=== PATIENT | female | born 1975 | race Two or more races ===

== ENCOUNTER 2016-09-24 16:42 | Emergency (ER) | payer MEDICAID ==
[2016-09-24 17:27] LABS: URINE BILIRUBIN NEGATIVE (NEGATIVE); URINE BLOOD NEGATIVE (NEGATIVE); URINE GLUCOSE (UA) NEGATIVE (NEGATIVE); URINE LEUKOCYTE ESTERASE TRACE (NEGATIVE); URINE NITRITE NEGATIVE (NEGATIVE); URINE PROTEIN NEGATIVE (NEGATIVE); URINE UROBILINOGEN NORMAL (0-1 mg/dl)
[2016-09-24 17:28] LABS: URINE APPEARANCE CLEAR; URINE COLOR LIGHT YELLOW
[2016-09-24 17:29] LABS: HCG,QUALITATIVE URINE NEGATIVE
[2016-09-24 17:36] LABS: URINE BACTERIA 2+; URINE RBC 0 /hpf; URINE WBC 0-1 /hpf
[2016-09-24] MEDS ORDERED: LORAZEPAM 1 MG TABLET ONE (18:17)
--- NOTE | 2016-09-25 07:57 | RAD ---
History: Chest pain for one hour. Comparison: None. Technique: 2 views Findings: The soft tissue and bony structures are unremarkable. The heart size is appropriate. No infiltrate, effusion or pneumothorax is observed. The hilar and mediastinal structures are normal. Impression: 1. No active intra-thoracic disease.
== END 2016-09-24 19:51 | disposition home or self-care (01) ==
LOC: ED 16:42
DX: R07.9 Chest pain, unspecified (principal); F41.1 Generalized anxiety disorder; F43.0 Acute stress reaction
CPT/HCPCS: 81025; 87086; 81001; 71020; 99283 ×2; 93005; A9270